=== PATIENT | male | born 1975 | race African-American/Black ===

== ENCOUNTER 2017-12-14 02:11 | Emergency (ER) | payer MEDICAID ==
[~2017-12-14] VITALS: Ht 182.9 cm; Wt 92.0 kg
[2017-12-14] MEDS ORDERED: IBUPROFEN 800MG TABLET PO ONE (07:15)
[2017-12-14 11:25] VITALS: BP 110/76
== END 2017-12-14 11:25 | disposition home or self-care (01) ==
LOC: ER 02:11
DX: M54.5 Low back pain (principal); M54.2 Cervicalgia; W06.XXXA Fall from bed, initial encounter; Y93.84 Activity, sleeping; Y92.092 Bedroom in other non-institutional residence as the place of occurrence of the external cause
CPT/HCPCS: 72040; 72110; 99284